=== PATIENT | male | born 1980 | race Two or more races ===

== ENCOUNTER 2016-09-27 12:02 | Inpatient (IN) | payer OTHER ==
[2016-09-27 14:06] VITALS: BMI 28.8
--- NOTE | 2016-09-27 16:40 | HP ---
[id number] [id number] Restless Observation: 1= Difficult to Sit Still Pupil Size: 0= Normal to Room Light Bone or Joint Aches: 2= Severe Diffuse Aches Runny Nose/ Eye Tearin= Runny Nose/Eyes GI Upset > 30mins: 1= Stomach Cramp Tremor Observation: 2= Slight Tremor Visible Yawning Observation: 1= 1-2x During Session Anxiety or Irritability: 2=Irritable/Anxious Goose Flesh Skin: 0=Smooth Skin COWS Score: 13 Admission [facility] - HPI Chief Complaint: withdrawal sx Allergies/Adverse Reactions: Allergies Allergy/AdvReac Type Severity Reaction Status Date / Time No Known Allergies Allergy Verified 09/27/16 15:44 History of Present Illness: 36 years old male with long history of opioid nicotine dependence has hiv and depression is admitted to detox Exam Limitations: No Limitations - Ebola screening Have you traveled outside of the country in the last 21 days: No Have you had contact with anyone from an Ebola affected area: No Have you been sick,other than usual withdrawal symptoms: No Do you have a fever: No - Review of Systems Constitutional: Chills, Changes in sleep, Weight Stable EENT: reports: Other (eye glasses) Respiratory: reports: No Symptoms reported Cardiac: reports: No Symptoms Reported GI: reports: Nausea, Poor Fluid Intake, Abdominal cramping : reports: No Symptoms Reported Musculoskeletal: reports: Back Pain Integumentary: reports: Change in Color (left inner elbow) Neuro: reports: Tremors Endocrine: reports: No Symptoms Reported Hematology: reports: No Symptoms Reported Psychiatric: reports: Judgement Intact, Orientated x3, Depressed Other Systems: Reviewed and Negative Patient History - Patient Medical History Hx Anemia: No Hx Asthma: No Hx Chronic Obstructive Pulmonary Disease (COPD): No Hx Cancer: No Hx Cardiac Disorders: No Hx Congestive Heart Failure: No Hx Hypertension: No Hx Hypercholesterolemia: No Hx Pacemaker: No HX Cerebrovascular Accident: No Hx Seizures: No Hx Dementia: No Hx Diabetes: No Hx Gastrointestinal Disorders: No Hx Liver Disease: No Hx Genitourinary Disorders: No Hx Sexually Transmitted Disorders: No Hx Renal Disease (ESRD): No Hx Thyroid Disease: No Hx Human Immunodeficiency Virus (HIV): Yes ( SINCE 2000) Hx Hepatitis C: No Hx Depression: Yes Hx Suicide Attempt: No Hx Bipolar Disorder: No Hx Schizophrenia: No - Patient Surgical History Past Surgical History: No Hx Neurologic Surgery: No Hx Cataract Extraction: No Hx Cardiac Surgery: No Hx Lung Surgery: No Hx Breast Surgery: No Hx Breast Biopsy: No Hx Abdominal Surgery: No Hx Appendectomy: No Hx Cholecystectomy: No Hx Genitourinary Surgery: No Hx Orthopedic Surgery: No - PPD History Previous Implant?: Yes Documented Results: Negative w/proof Implanted On Prior [facility] Admission?: Yes Date: 10/18/15 Results: 0 mm PPD to be Administered?: No - Smoking Cessation Smoking history: Current every day smoker Have you smoked in the past 12 months: Yes Aproximately how many cigarettes per day: 4 Cigars Per Day: 0 Hx Chewing Tobacco Use: No Initiated information on smoking cessation: Yes 'Breaking Loose' booklet given: 09/27/16 - Substance & Tx. History Hx Alcohol Use: No Hx Substance Use: Yes Substance Use Type: Cocaine, Opiates Hx Substance Use Treatment: Yes - Substances Abused Heroin Route: Injection Frequency: Daily Amount used: 2-3 bags Age of first use: 31 Date of Last Use: 09/26/16 Cocaine Route: Injection Frequency: 1-2 times per week Amount used: $60 Age of first use: 16 Date of Last Use: 09/26/16 Family Disease History - Family Disease History Family Disease History: Heart Disease: Father (), Mother Admission Physical Exam S - Vital Signs Vital Signs: Vital Signs - 24 hr 09/27/16 14:03 Temperature 96.1 F L Pulse Rate 93 H Respiratory 20 Rate Blood Pressure 128/72 - Physical General Appearance: Yes: Nourished, Appropriately Dressed, Mild Distress, Tremorous, Irritable, Sweating, Anxious HEENTM: Yes: Hearing grossly Normal, Normal ENT Inspection, Normocephalic, Normal Voice Respiratory: Yes: Chest Non-Tender, Lungs Clear, Normal Breath Sounds, No Respiratory Distress, No Accessory Muscle Use Neck: Yes: Supple, Trachea in good position Breast: Yes: Breasts Symetrical Cardiology: Yes: Regular Rhythm, Regular Rate, S1, S2 Abdominal: Yes: Non Tender, Soft Genitourinary: Yes: Within Normal Limits Back: Yes: Normal Inspection Musculoskeletal: Yes: full range of Motion, Gait Steady, Back pain Extremities: Yes: Normal Inspection, Normal Range of Motion, Non-Tender, Tremors , Other (left inner elbow iv opioid) Neurological: Yes: Fully Oriented, Alert, Motor Strength 5/5, Normal Response, Depressed Affect Integumentary: Yes: Warm, Track Bloom Lymphatic: Yes: Within Normal Limits - Diagnostic (1) HIV (human immunodeficiency virus infection) Current Visit: Yes Status: Chronic Comment: treated with stribid (2) Nicotine dependence Current Visit: Yes Status: Chronic Qualifiers: Nicotine product type: cigarettes Substance use status: in withdrawal Qualified Code(s): F17.213 - Nicotine dependence, cigarettes, with withdrawal (3) Depression (emotion) Current Visit: Yes Status: Suspected Qualifiers: Depression Type: dysthymia Qualified Code(s): F34.1 - Dysthymic disorder Cleared for Admission [facility] - Detox or Rehab [facility] Level of Care: Medically Managed Detox Regimen/Protocol: Methadone [facility] Breath Alcohol Content Breath Alcohol Content: 0 Urine Drug Screen - Results Drug Screen Negative: No Urine Drug Screen Results: RED-Cocaine, OPI-Opiates, PCP-Phencyclidine
[2016-09-27] MEDS ORDERED: MAGNESIUM CITRATE 300 ML BOTTLE PO PRN (16:42)
[2016-09-27] MEDS ORDERED: LOPERAMIDE HCL 2 MG CAPSULE PO PRN (16:42)
[2016-09-27] MEDS ORDERED: ACETAMINOPHEN 325 MG TABLET (FP) PO PRN (16:42)
[2016-09-27] MEDS ORDERED: MAGNESIUM HYDROX 2400MG/30ML ORAL SUSPENSION 30 ML CUP PO PRN (16:42)
[2016-09-27] MEDS ORDERED: guaiFENesin/D-METHORPHAN HB 10 ML UNIT-DOSE CUPS PO PRN (16:42)
[2016-09-27] MEDS ORDERED: P-EPHED 60MG/TRIPROLIDI 2.5MG TABLET PO PRN (16:42)
[2016-09-27] MEDS ORDERED: IBUPROFEN 400 MG TABLET (FP) PO PRN (16:42)
[2016-09-27] MEDS ORDERED: MENTHOL/PHENOL 1 EACH UD MM PRN (16:42)
[2016-09-27] MEDS ORDERED: METHADONE HCL 10 MG TABLET (FOR DETOX USE ONLY) PO ONE ×2 (17:15→23:00)
[2016-09-27] MEDS ORDERED: METHADONE HCL 10 MG TABLET (FOR DETOX USE ONLY) ONE (20:01)
[2016-09-27] MEDS: diazePAM 5 MG TABLET PO PRN (20:02)
[2016-09-27] MEDS: THIAMINE HCL 100 MG TABLET (FP) PO SCH (22:36)
[2016-09-27] MEDS: diphenhydrAMINE HCL 50 MG CAPSULE PO PRN (22:37)
[2016-09-28] MEDS: diphenhydrAMINE HCL 50 MG CAPSULE PO PRN (01:08)
[2016-09-28] MEDS: diazePAM 5 MG TABLET PO PRN ×4 (01:08→19:09)
[2016-09-28] MEDS ORDERED: METHADONE HCL 10 MG TABLET (FOR DETOX USE ONLY) PO ONE (10:00)
--- NOTE | 2016-09-28 10:21 | CONSULT ---
[facility] Psychiatric Consult - Data Date of interview: 09/28/16 Admission source: [facility] Identifying data: This is 36 years old male with unclerar past psychiatric hostpry of hospitalizations, reportsd history of Bipolar Disorder, reports no medicwations taking prior to admission, intoxicated with: Cocaine, Heroin, PCP , Nicotine Substance Abuse History: - Smoking Cessation. Smoking history: Current every day smoker. Have you smoked in the past 12 months: Yes. Aproximately how many cigarettes per day: 4. Cigars Per Day: 0. Hx Chewing Tobacco Use: No. Initiated information on smoking cessation: Yes. 'Breaking Loose' booklet given : 09/27/16. - Substance & Tx. History. Hx Alcohol Use: No. Hx Substance Use: Yes. Substance Use Type: Cocaine, Opiates. Hx Substance Use Treatment: Yes. - Substances Abused. Heroin. Route: Injection. Frequency: Daily. Amount used: 2-3 bags. Age of first use: 31. Date of Last Use: 09/26/16. Cocaine. Route: Injection. Frequency: 1-2 times per week. Amount used: $60. Age of first use: 16. Date of Last Use: 09/26/16 Medical History: HIV, MMTP Psychiatric History: Patioent reports history of Bipolar disorder, reports nom medications prior to admission with unclear past psychiatric hospitalization history Physical/Sexual Abuse/Trauma History: Denies Additional Comment: Obsrvartion. Detox Unit Care Protocol Mental Status Exam - Mental Status Exam Alert and Oriented to: Person Cognitive Function: Fair Patient Appearance: Unkempt Mood: Sad Affect: Flat Patient Behavior: Sedated Speech Pattern: Delayed Voice Loudness: Mildly Soft/Quiet Thought Process: Circumstantial Thought Disorder: Being Controlled Hallucinations: Denies Suicidal Ideation: Denies Homicidal Ideation: Denies Insight/Judgement: Fair Sleep: Difficulty falling asleep Appetite: Weight loss Muscle strength/Tone: Normal Gait/Station: Shuffling Additional Comments: Obsrvartion. Detox Unit Care Protocol Psychiatric Findings - Problem List ([place] 1, 2,3) (1) Nicotine dependence Current Visit: Yes Status: Chronic Qualifiers: Nicotine product type: cigarettes Substance use status: in withdrawal Qualified Code(s): F17.213 - Nicotine dependence, cigarettes, with withdrawal (2) Depression (emotion) Current Visit: Yes Status: Suspected Qualifiers: Depression Type: dysthymia Qualified Code(s): F34.1 - Dysthymic disorder (3) Opioid dependence Current Visit: No Status: Acute (4) Opioid dependence with withdrawal Current Visit: No Status: Acute (5) Sedative hypnotic or anxiolytic dependence Current Visit: No Status: Acute (6) Substance induced mood disorder Current Visit: No Status: Acute (7) Alcohol dependence Current Visit: No Status: Chronic Qualifiers: Substance use status: uncomplicated Qualified Code(s): F10.20 - Alcohol dependence, uncomplicated (8) Cocaine dependence Current Visit: No Status: Chronic Qualifiers: Substance use status: uncomplicated Qualified Code(s): F14.20 - Cocaine dependence, uncomplicated (9) Heroin dependence Current Visit: No Status: Chronic (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 Detox Unit Care Protocol
[2016-09-28] MEDS: NICOTINE 14 MG/24 HOURS TOPICAL PATCH TD SCH (10:26)
[2016-09-28] MEDS: PRENATAL VITAMINS W/ FOLIC ACID TABLET (FP) PO SCH (10:26)
[2016-09-28] MEDS: NICOTINE POLACRILEX 2 MG GUM BC PRN ×2 (10:29→23:24)
[2016-09-28 10:44] LABS: MCH 30.3 pg (25.7-33.7); MEAN CELL VOLUME 91.9 fl (80-96); MEAN PLT VOLUME 10.5 fl (7.5-11.1); PLATELET COUNT 249 K/MM3 (134-434); RDW 13.6 % (11.9-15.9); WHITE BLOOD COUNT 4.1 K/mm3 (4.0-10.0)
[2016-09-28 10:46] LABS: ALBUMIN 4.3 g/dl (3.4-5.0); ALK PHOS 67 U/L (45-117); ANION GAP 8 (8-16); BILIRUBIN,TOTAL 0.7 mg/dL (0.2-1.0); CALCIUM 9.4 mg/dL (8.5-10.1); CO2 29 mmol/L (21-32); COCKROFT - GAULT 113.16; CREATININE 1.1 mg/dL (0.7-1.3); GLUCOSE,RANDOM 105 mg/dL (74-106); SGOT/AST 14 U/L (15-37); SGPT/ALT 25 U/L (12-78); TOT PROT 7.3 g/dl (6.4-8.2)
--- NOTE | 2016-09-28 11:02 | EKG ---
Test Reason : Blood Pressure : / mmHG Vent. Rate : 088 BPM Atrial Rate : 088 BPM P-R Int : 176 ms QRS Dur : 084 ms QT Int : 334 ms P-R-T Axes : 036 044 010 degrees QTc Int : 404 ms NORMAL SINUS RHYTHM NORMAL ECG NO PREVIOUS ECGS AVAILABLE Confirmed by JEAN ELIZONDO, RAFA ([id number]) on 09/28/2016 11:02:32 AM Referred By: Confirmed By:RAFA PENA MD
[2016-09-28] MEDS ORDERED: LIDOCAINE 5% TOPICAL PATCH TP ONE (11:29)
--- NOTE | 2016-09-28 13:10 | PN ---
BHS COWS - Scale Resting Pulse: 0= [place] 80 or Below Sweatin= Chills/Flushing Restless Observation: 1= Difficult to Sit Still Pupil Size: 1= Pupils >than Normal Bone or Joint Aches: 2= Severe Diffuse Aches Runny Nose/ Eye Tearin= Nasal Congestion GI Upset > 30mins: 1= Stomach Cramp Tremor Observation of Outstretched Hands: 1= Tremor [place], Not Seen Yawning Observation: 0= None Anxiety or Irritability: 2=Irritable/Anxious Goose Flesh Skin: 0=Smooth Skin COWS Score: 10 BHS Progress Note (SOAP) Subjective: sweats, irritated, lbp. Objective: 09/28/16 13:08 Vital Signs Temperature 98.1 F 09/28/16 09:40 Pulse Rate 85 09/28/16 09:40 Respiratory Rate 18 09/28/16 09:40 Blood Pressure 123/66 09/28/16 09:40 O2 Sat by Pulse Oximetry (%) Laboratory Tests 09/28/16 09/28/16 09/28/16 06:00 06:00 06:00 WBC 4.1 RBC 5.28 Hgb 16.0 Hct 48.5 MCV 91.9 MCHC 33.0 RDW 13.6 Plt Count 249 D MPV 10.5 Sodium 142 Potassium 4.7 Chloride 105 Carbon Dioxide 29 Anion Gap 8 BUN 15 Creatinine 1.1 Creat Clearance w eGFR > 60 Random Glucose 105 Calcium 9.4 Total Bilirubin 0.7 AST 14 L ALT 25 Alkaline Phosphatase 67 Total Protein 7.3 Albumin 4.3 RPR Titer Nonreactive pt aox3 in nad ambulating Assessment: 09/28/16 13:09 withdrawal sx's lbp Plan: cont detox increase fluids lidocaine patch cont with genvoya instead of stribild
[2016-09-28 16:31] LABS: URINE APPEARANCE CLEAR; URINE BILIRUBIN NEGATIVE (NEGATIVE); URINE BLOOD NEGATIVE (NEGATIVE); URINE COLOR YELLOW; URINE GLUCOSE (UA) NEGATIVE (NEGATIVE); URINE KETONE NEGATIVE (NEGATIVE); URINE LEUK ESTERASE NEGATIVE (NEGATIVE); URINE NITRITE NEGATIVE (NEGATIVE); URINE PROTEIN NEGATIVE (NEGATIVE); URINE UROBILINOGEN NEGATIVE E.U./dl (0.2-1.0)
--- NOTE | 2016-09-28 17:56 | PN ---
Marce Progress Note Note: Psychiatry Attending's process validation engineer note : Approached by patient. Complaint : insomnia. Request : resume seroquel at bedtime. Chart reviewed.Dr Zhao's note is appreciated. Mr Perez is already known to me.See previous records. Well established tolerability/favorable response to seroquel. Made aware of side effects/benefits.Verbal consent : given. Intervention : Seroquel 100 mg po hs .Ordered.Patient is in agreement with plan.
[2016-09-28] MEDS ORDERED: QUEtiapine FUMARATE 100 MG TABLET (FP) PO SCH (22:00)
[2016-09-28] MEDS: THIAMINE HCL 100 MG TABLET (FP) PO SCH (22:43)
[2016-09-28] MEDS: MAG HYDROX/AL HYDROX/SIMETH 30 ML UNIT-DOSE CUP PO PRN (23:46)
[2016-09-29] MEDS: diazePAM 5 MG TABLET PO PRN ×3 (06:06→18:10)
[2016-09-29] MEDS: MAG HYDROX/AL HYDROX/SIMETH 30 ML UNIT-DOSE CUP PO PRN (06:07)
[2016-09-29] MEDS: NICOTINE POLACRILEX 2 MG GUM BC PRN ×2 (09:19→15:35)
[2016-09-29] MEDS ORDERED: METHADONE HCL 5 MG TABLET (FOR DETOX USE ONLY) PO ONE (10:00)
[2016-09-29] MEDS: NICOTINE 14 MG/24 HOURS TOPICAL PATCH TD SCH (10:50)
[2016-09-29] MEDS: PRENATAL VITAMINS W/ FOLIC ACID TABLET (FP) PO SCH (10:50)
[2016-09-29] MEDS: LIDOCAINE 5% TOPICAL PATCH TP SCH (10:51)
--- NOTE | 2016-09-29 11:08 | PN ---
BHS COWS - Scale Resting Pulse: 1= [place] 81-100 Sweatin=Flushed/Facial Moisture Restless Observation: 1= Difficult to Sit Still Pupil Size: 0= Normal to Room Light Bone or Joint Aches: 0= None Runny Nose/ Eye Tearin= Nasal Congestion GI Upset > 30mins: 0= None Tremor Observation of Outstretched Hands: 1= Tremor [place], Not Seen Yawning Observation: 2= >3x During Session Anxiety or Irritability: 1=Feels Anxious/Irritable Goose Flesh Skin: 0=Smooth Skin COWS Score: 9 BHS Progress Note (SOAP) Subjective: sleepy the seroquel is too much sweats agitation Objective: 09/29/16 11:07 Vital Signs Temperature 96.4 F L 09/29/16 09:27 Pulse Rate 99 H 09/29/16 09:27 Respiratory Rate 20 09/29/16 09:27 Blood Pressure 131/78 09/29/16 09:27 O2 Sat by Pulse Oximetry (%) Laboratory Tests 09/27/16 09/28/16 09/28/16 06:00 06:00 06:00 WBC 4.1 RBC 5.28 Hgb 16.0 Hct 48.5 MCV 91.9 MCHC 33.0 RDW 13.6 Plt Count 249 D MPV 10.5 Sodium 142 Potassium 4.7 Chloride 105 Carbon Dioxide 29 Anion Gap 8 BUN 15 Creatinine 1.1 Creat Clearance w eGFR > 60 Random Glucose 105 Calcium 9.4 Total Bilirubin 0.7 AST 14 L ALT 25 Alkaline Phosphatase 67 Total Protein 7.3 Albumin 4.3 Urine Color Urine Appearance Urine pH Ur Specific [place] Urine Protein Urine Glucose (UA) Urine Ketones Urine Blood Urine Nitrite Urine Bilirubin Urine Urobilinogen Ur Leukocyte Esterase RPR Titer Hepatitis C Antibody <0.1 09/28/16 09/28/16 06:00 15:57 WBC RBC Hgb Hct MCV MCHC RDW Plt Count MPV Sodium Potassium Chloride Carbon Dioxide Anion Gap BUN Creatinine Creat Clearance w eGFR Random Glucose Calcium Total Bilirubin AST ALT Alkaline Phosphatase Total Protein Albumin Urine Color Yellow Urine Appearance Clear Urine pH 6.0 Ur Specific [place] 1.020 Urine Protein Negative Urine Glucose (UA) Negative Urine Ketones Negative Urine Blood Negative Urine Nitrite Negative Urine Bilirubin Negative Urine Urobilinogen Negative Ur Leukocyte Esterase Negative RPR Titer Nonreactive Hepatitis C Antibody awake/alert ambulating no acute distress Assessment: 09/29/16 11:07 withdrawal sx Plan: continue detox increase fluids encouraged to speak to psych for medication adjustment.
[2016-09-29] MEDS: QUEtiapine FUMARATE 50 MG TABLET PO SCH (22:42)
[2016-09-29] MEDS: THIAMINE HCL 100 MG TABLET (FP) PO SCH (22:42)
--- NOTE | 2016-09-30 09:42 | PN ---
BHS Progress Note (SOAP) Subjective: ALERT,IRRITABLE,ANXIOUS,INTERRUPTED SLEEP,LOOSE BOWL MOVEMENT Objective: 09/30/16 09:41 Vital Signs Temperature 96.1 F L 09/30/16 06:30 Pulse Rate 101 H 09/30/16 06:30 Respiratory Rate 20 09/30/16 06:30 Blood Pressure 136/61 09/30/16 06:30 O2 Sat by Pulse Oximetry (%) Assessment: 09/30/16 09:42 WITHDRAWAL SYMPTOM Plan: CONTINUE DETOX
[2016-09-30] MEDS ORDERED: METHADONE HCL 5 MG TABLET (FOR DETOX USE ONLY) PO ONE (10:00)
[2016-09-30] MEDS: PRENATAL VITAMINS W/ FOLIC ACID TABLET (FP) PO SCH (10:39)
[2016-09-30] MEDS: LIDOCAINE 5% TOPICAL PATCH TP SCH (10:39)
[2016-09-30] MEDS: NICOTINE 14 MG/24 HOURS TOPICAL PATCH TD SCH (10:40)
[2016-09-30] MEDS: diazePAM 5 MG TABLET PO PRN ×2 (10:41→14:50)
[2016-09-30] MEDS: MAG HYDROX/AL HYDROX/SIMETH 30 ML UNIT-DOSE CUP PO PRN (10:43)
[2016-09-30] MEDS: NICOTINE POLACRILEX 2 MG GUM BC PRN (12:40)
--- NOTE | 2016-09-30 16:33 | PN ---
S Progress Note Note: pt states he scratched his upper arm with the metal piece/apparatus that was sticking out of the closet door. nursing was made aware. Skin has a scratch only no bleeding noted no s/s of infection to site noted. bacitracin ointment ordered.
[2016-09-30] MEDS ORDERED: BACITRACIN 0.9 GM PACKET TP SCH (17:00)
[2016-09-30] MEDS: QUEtiapine FUMARATE 50 MG TABLET PO SCH (22:40)
[2016-09-30] MEDS: THIAMINE HCL 100 MG TABLET (FP) PO SCH (22:40)
[2016-10-01 06:36] VITALS: TEMP 97.7
[2016-10-01] MEDS ORDERED: METHADONE HCL 10 MG TABLET (FOR DETOX USE ONLY) PO ONE (10:00)
[2016-10-01 10:34] VITALS: BP 108/65; PULSE 101
--- NOTE | 2016-10-01 12:10 | PN ---
S Progress Note (SOAP) Subjective: Irritability, interrupted sleep, muscle aches Objective: 10/01/16 12:07 Vital Signs - 8 hr 10/01/16 10/01/16 06:00 10:34 Temperature 97.7 F 97.7 F Pulse Rate 91 H 101 H Respiratory 20 18 Rate Blood Pressure 100/52 108/65 Laboratory Last Values WBC 4.1 K/mm3 (4.0-10.0) 09/28/16 06:00 RBC 5.28 M/mm3 (4.00-5.60) 09/28/16 06:00 Hgb 16.0 GM/dL (11.7-16.9) 09/28/16 06:00 Hct 48.5 % (35.4-49) 09/28/16 06:00 MCV 91.9 fl (80-96) 09/28/16 06:00 MCHC 33.0 g/dl (32.0-35.9) 09/28/16 06:00 RDW 13.6 % (11.9-15.9) 09/28/16 06:00 Plt Count 249 K/MM3 (134-434) D 09/28/16 06:00 MPV 10.5 fl (7.5-11.1) 09/28/16 06:00 Sodium 142 mmol/L (136-145) 09/28/16 06:00 Potassium 4.7 mmol/L (3.5-5.1) 09/28/16 06:00 Chloride 105 mmol/L (98-107) 09/28/16 06:00 Carbon Dioxide 29 mmol/L (21-32) 09/28/16 06:00 Anion Gap 8 (8-16) 09/28/16 06:00 BUN 15 mg/dL (7-18) 09/28/16 06:00 Creatinine 1.1 mg/dL (0.7-1.3) 09/28/16 06:00 Creat Clearance w eGFR > 60 (>60) 09/28/16 06:00 Random Glucose 105 mg/dL (74-106) 09/28/16 06:00 Calcium 9.4 mg/dL (8.5-10.1) 09/28/16 06:00 Total Bilirubin 0.7 mg/dL (0.2-1.0) 09/28/16 06:00 AST 14 U/L (15-37) L 09/28/16 06:00 ALT 25 U/L (12-78) 09/28/16 06:00 Alkaline Phosphatase 67 U/L (45-117) 09/28/16 06:00 Total Protein 7.3 g/dl (6.4-8.2) 09/28/16 06:00 Albumin 4.3 g/dl (3.4-5.0) 09/28/16 06:00 Urine Color Yellow 09/28/16 15:57 Urine Appearance Clear 09/28/16 15:57 Urine pH 6.0 (5.0-8.0) 09/28/16 15:57 Ur Specific [place] 1.020 (1.001-1.035) 09/28/16 15:57 Urine Protein Negative (NEGATIVE) 09/28/16 15:57 Urine Glucose (UA) Negative (NEGATIVE) 09/28/16 15:57 Urine Ketones Negative (NEGATIVE) 09/28/16 15:57 Urine Blood Negative (NEGATIVE) 09/28/16 15:57 Urine Nitrite Negative (NEGATIVE) 09/28/16 15:57 Urine Bilirubin Negative (NEGATIVE) 09/28/16 15:57 Urine Urobilinogen Negative E.U./dl (0.2-1.0) 09/28/16 15:57 Ur Leukocyte Esterase Negative (NEGATIVE) 09/28/16 15:57 RPR Titer Nonreactive (NONREACTIVE) 09/28/16 06:00 Hepatitis C Antibody <0.1 s/co ratio (0.0-0.9) 09/27/16 06:00 labs noted Assessment: 10/01/16 12:09 withdrawal sx Plan: continue detox
--- NOTE | 2016-10-01 17:03 | DS ---
[facility] Detox Discharge Summary Admission Date: 09/27/16 Discharge Date: 10/01/16 - History Present History: Alcohol Dependence, Opioid Dependence Pertinent Past History: HIV + - Physical Exam Results Vital Signs: Vital Signs Temperature 97.7 F 10/01/16 10:34 Pulse Rate 101 H 10/01/16 10:34 Respiratory Rate 18 10/01/16 10:34 Blood Pressure 108/65 10/01/16 10:34 O2 Sat by Pulse Oximetry (%) Pertinent Admission Physical Exam Findings: withdrawal sx Laboratory Last Values WBC 4.1 K/mm3 (4.0-10.0) 09/28/16 06:00 RBC 5.28 M/mm3 (4.00-5.60) 09/28/16 06:00 Hgb 16.0 GM/dL (11.7-16.9) 09/28/16 06:00 Hct 48.5 % (35.4-49) 09/28/16 06:00 MCV 91.9 fl (80-96) 09/28/16 06:00 MCHC 33.0 g/dl (32.0-35.9) 09/28/16 06:00 RDW 13.6 % (11.9-15.9) 09/28/16 06:00 Plt Count 249 K/MM3 (134-434) D 09/28/16 06:00 MPV 10.5 fl (7.5-11.1) 09/28/16 06:00 Sodium 142 mmol/L (136-145) 09/28/16 06:00 Potassium 4.7 mmol/L (3.5-5.1) 09/28/16 06:00 Chloride 105 mmol/L (98-107) 09/28/16 06:00 Carbon Dioxide 29 mmol/L (21-32) 09/28/16 06:00 Anion Gap 8 (8-16) 09/28/16 06:00 BUN 15 mg/dL (7-18) 09/28/16 06:00 Creatinine 1.1 mg/dL (0.7-1.3) 09/28/16 06:00 Creat Clearance w eGFR > 60 (>60) 09/28/16 06:00 Random Glucose 105 mg/dL (74-106) 09/28/16 06:00 Calcium 9.4 mg/dL (8.5-10.1) 09/28/16 06:00 Total Bilirubin 0.7 mg/dL (0.2-1.0) 09/28/16 06:00 AST 14 U/L (15-37) L 09/28/16 06:00 ALT 25 U/L (12-78) 09/28/16 06:00 Alkaline Phosphatase 67 U/L (45-117) 09/28/16 06:00 Total Protein 7.3 g/dl (6.4-8.2) 09/28/16 06:00 Albumin 4.3 g/dl (3.4-5.0) 09/28/16 06:00 Urine Color Yellow 09/28/16 15:57 Urine Appearance Clear 09/28/16 15:57 Urine pH 6.0 (5.0-8.0) 09/28/16 15:57 Ur Specific [place] 1.020 (1.001-1.035) 09/28/16 15:57 Urine Protein Negative (NEGATIVE) 09/28/16 15:57 Urine Glucose (UA) Negative (NEGATIVE) 09/28/16 15:57 Urine Ketones Negative (NEGATIVE) 09/28/16 15:57 Urine Blood Negative (NEGATIVE) 09/28/16 15:57 Urine Nitrite Negative (NEGATIVE) 09/28/16 15:57 Urine Bilirubin Negative (NEGATIVE) 09/28/16 15:57 Urine Urobilinogen Negative E.U./dl (0.2-1.0) 09/28/16 15:57 Ur Leukocyte Esterase Negative (NEGATIVE) 09/28/16 15:57 RPR Titer Nonreactive (NONREACTIVE) 09/28/16 06:00 Hepatitis C Antibody <0.1 s/co ratio (0.0-0.9) 09/27/16 06:00 - Medication Discharge Medications: Ambulatory Orders Elviteg/Sofi/Emtric/Tenofo Ala [Genvoya Tablet] 1 each PO DAILY 09/27/16 - Diagnosis (1) Sedative hypnotic or anxiolytic dependence Status: Acute (2) Substance induced mood disorder Status: Acute (3) Alcohol dependence Status: Acute Qualifiers: Substance use status: uncomplicated Qualified Code(s): F10.20 - Alcohol dependence, uncomplicated (4) Cocaine dependence Status: Acute Qualifiers: Substance use status: uncomplicated Qualified Code(s): F14.20 - Cocaine dependence, uncomplicated (5) HIV (human immunodeficiency virus infection) Status: Chronic - AMA Did Patient Leave Against Medical Advice: Yes
[2016-10-02] MEDS ORDERED: METHADONE HCL 5 MG TABLET (FOR DETOX USE ONLY) PO ONE (06:00)
== END 2016-10-01 09:20 | disposition left against medical advice (07) | DRG 770 ==
LOC: YASAS 12:02 → Y6N 17:02
PROVIDERS: ADMIT Internal Medicine Addiction Medicine; ATTEND Internal Medicine Addiction Medicine
PROC: HZ2ZZZZ Detoxification Services for Substance Abuse Treatment (ICD-10-PCS; principal; 2016-10-01)
DX: F11.23 Opioid dependence with withdrawal (principal); F13.230 Sedative, hypnotic or anxiolytic dependence with withdrawal, uncomplicated; F14.20 Cocaine dependence, uncomplicated; F17.210 Nicotine dependence, cigarettes, uncomplicated; F16.10 Hallucinogen abuse, uncomplicated; F19.24 Other psychoactive substance dependence with psychoactive substance-induced mood disorder; F34.1 Dysthymic disorder; F31.9 Bipolar disorder, unspecified; Z21 Asymptomatic human immunodeficiency virus [HIV] infection status
CPT/HCPCS: 36415; 80053; 81003; 85027; 86593; 93005; 93010

== ENCOUNTER 2023-05-23 22:34 | Inpatient (IN) | payer OTHER ==
[2023-05-23 23:25] VITALS: BMI 23.4
[2023-05-23] MEDS ORDERED: MAG HYDROX/AL HYDROX/SIMETH 30 ML UNIT-DOSE CUP PO PRN (23:52)
[2023-05-23] MEDS ORDERED: BENZONATATE 200 MG CAPSULE PO PRN (23:52)
[2023-05-23] MEDS ORDERED: IBUPROFEN 400 MG TABLET (FP) PO PRN (23:52)
[2023-05-23] MEDS ORDERED: guaiFENesin 600 MG TABLET.ER (FP) PO PRN (23:52)
[2023-05-23] MEDS ORDERED: ONDANSETRON *ODT* 4 MG TABLET SL PRN (23:52)
[2023-05-23] MEDS ORDERED: NALOXONE HCL (KLOXXADO) 8 MG SPRAY NS PRN (23:52)
[2023-05-23] MEDS ORDERED: BISMUTH SUBSALICYLATE 524 MG/30 ML PO PRN (23:52)
[2023-05-23] MEDS ORDERED: LOPERAMIDE HCL 2 MG CAPSULE PO PRN (23:52)
[2023-05-23] MEDS ORDERED: MAGNESIUM HYDROX 2400MG/30ML ORAL SUSPENSION 30 ML CUP PO PRN (23:52)
[2023-05-23] MEDS ORDERED: NICOTINE POLACRILEX 2 MG GUM BUC PRN (23:52)
[2023-05-23] MEDS ORDERED: ACETAMINOPHEN 325 MG TABLET (FP) PO PRN (23:52)
[2023-05-23] MEDS ORDERED: BENZOCAINE/MENTHOL (CHLORASEPTIC ) LOZENGE MM PRN (23:52)
[2023-05-23] MEDS ORDERED: NALOXONE HCL 0.4 MG/ML VIAL IM PRN (23:52)
[2023-05-23] MEDS ORDERED: IBUPROFEN 600 MG TABLET (FP) PO PRN (23:52)
[2023-05-23] MEDS ORDERED: DICYCLOMINE HCL 10 MG CAPSULE PO PRN (23:52)
[2023-05-23] MEDS ORDERED: POLYETHYLENE GLYCOL (HEALTHYLAX) 3350 17 GM PACKET PO PRN (23:52)
[2023-05-23] MEDS ORDERED: methaDONE HCL 10 MG TABLET (FOR DETOX USE ONLY) PO ONE (23:59)
[2023-05-24] MEDS ORDERED: methaDONE HCL 10 MG TABLET (FOR DETOX USE ONLY) ONE (00:02)
[2023-05-24] MEDS: hydrOXYzine PAMOATE 25 MG CAPSULE (FP) PO PRN (05:37)
[2023-05-24] MEDS: BICTEGRAV/EMTRICIT/TENOFOV (BIKTARVY) 50-200-25 MG TABLET PO SCH (10:00)
[2023-05-24] MEDS: NICOTINE 14 MG/24 HOURS TOPICAL PATCH TD SCH (10:02)
[2023-05-24] MEDS: PRENATAL VITAMINS W/ FOLIC ACID TABLET (FP) PO SCH (10:03)
[2023-05-24 10:39] LABS: CHLORIDE 108 mmol/L (98-107); POTASSIUM 3.8 mmol/L (3.5-5.1); SODIUM 141 mmol/L (136-145)
[2023-05-24 10:50] LABS: HEMATOCRIT 36.1 % (35.4-49); HEMOGLOBIN 12.1 GM/dL (11.7-16.9); MCH 28.2 pg (25.7-33.7); MCHC 33.4 g/dl (32.0-35.9); MEAN CELL VOLUME 84.3 fl (80-96); PLATELET COUNT 306 10^3/uL (134-434); RBC 4.28 M/mm3 (4.00-5.60); RDW 13.3 % (11.9-15.9); WHITE BLOOD COUNT 3.2 K/mm3 (4.0-10.0)
[2023-05-24 11:10] LABS: CALCIUM 8.7 mg/dL (8.5-10.1)
[2023-05-24 11:11] LABS: ANION GAP 5 mmol/L (4-13); BLOOD UREA NITROGEN 8.4 mg/dL (7-18); CO2 28 mmol/L (21-32)
[2023-05-24 11:12] LABS: GLUCOSE,RANDOM 121 mg/dL (74-106)
[2023-05-24 11:14] LABS: BILIRUBIN,TOTAL 0.1 mg/dL (0.2-1); CREATININE 0.7 mg/dL (0.55-1.3); SGOT/AST 17 U/L (15-37); SGPT/ALT 14 U/L (13-61); TOT PROT 6.6 g/dl (6.4-8.2)
[2023-05-24 11:16] LABS: ALK PHOS 62 U/L (45-117)
[2023-05-24] MEDS: THIAMINE HCL 100 MG TABLET (FP) PO SCH (22:02)
[2023-05-24] MEDS: MELATONIN 5 MG TABLETS PO SCH (22:02)
[2023-05-25] MEDS: BICTEGRAV/EMTRICIT/TENOFOV (BIKTARVY) 50-200-25 MG TABLET PO SCH (07:54)
[2023-05-25] MEDS: cloNIDine HCL 0.1 MG TABLET PO PRN ×2 (09:25→22:55)
[2023-05-25] MEDS: METHOCARBAMOL 500 MG TABLET PO PRN ×3 (09:25→23:24)
[2023-05-25] MEDS: NICOTINE 14 MG/24 HOURS TOPICAL PATCH TD SCH (09:26)
[2023-05-25] MEDS: PRENATAL VITAMINS W/ FOLIC ACID TABLET (FP) PO SCH (09:26)
[2023-05-25] MEDS ORDERED: methaDONE HCL 10 MG TABLET (FOR DETOX USE ONLY) PO ONE (10:00)
[2023-05-25] MEDS ORDERED: diazePAM 5 MG TABLET PO PRN (12:44)
[2023-05-25] MEDS: hydrOXYzine PAMOATE 25 MG CAPSULE (FP) PO PRN (17:10)
[2023-05-25] MEDS: MELATONIN 5 MG TABLETS PO SCH (22:55)
[2023-05-25] MEDS: THIAMINE HCL 100 MG TABLET (FP) PO SCH (22:56)
[2023-05-26] MEDS: BICTEGRAV/EMTRICIT/TENOFOV (BIKTARVY) 50-200-25 MG TABLET PO SCH (07:24)
[2023-05-26] MEDS: PRENATAL VITAMINS W/ FOLIC ACID TABLET (FP) PO SCH (10:14)
[2023-05-26] MEDS: hydrOXYzine PAMOATE 25 MG CAPSULE (FP) PO PRN ×2 (10:15→17:05)
[2023-05-26] MEDS: METHOCARBAMOL 500 MG TABLET PO PRN ×3 (10:15→23:21)
[2023-05-26] MEDS: NICOTINE 14 MG/24 HOURS TOPICAL PATCH TD SCH (10:16)
[2023-05-26] MEDS: MELATONIN 5 MG TABLETS PO SCH (22:20)
[2023-05-26] MEDS: THIAMINE HCL 100 MG TABLET (FP) PO SCH (22:20)
[2023-05-27] MEDS: METHOCARBAMOL 500 MG TABLET PO PRN (06:20)
[2023-05-27] MEDS: hydrOXYzine PAMOATE 25 MG CAPSULE (FP) PO PRN (06:20)
[2023-05-27] MEDS: BICTEGRAV/EMTRICIT/TENOFOV (BIKTARVY) 50-200-25 MG TABLET PO SCH (07:05)
[2023-05-27 09:27] VITALS: BP 120/74; PULSE 98; RESP 18; TEMP 97.3
[2023-05-27] MEDS ORDERED: methaDONE HCL 10 MG TABLET (FOR DETOX USE ONLY) PO ONE (10:00)
[2023-05-27] MEDS: PRENATAL VITAMINS W/ FOLIC ACID TABLET (FP) PO SCH (10:02)
[2023-05-27] MEDS: NICOTINE 14 MG/24 HOURS TOPICAL PATCH TD SCH (10:02)
== END 2023-05-27 11:05 | disposition left against medical advice (07) | DRG 770 ==
LOC: YASAS 22:34 → Y6N 05-24 02:35
PROVIDERS: ADMIT Allergy & Immunology; ATTEND Surgery
PROC: HZ2ZZZZ Detoxification Services for Substance Abuse Treatment (ICD-10-PCS; principal; 2023-05-24)
DX: F11.23 Opioid dependence with withdrawal (principal); F15.10 Other stimulant abuse, uncomplicated; F19.24 Other psychoactive substance dependence with psychoactive substance-induced mood disorder; U07.1 COVID-19; Z21 Asymptomatic human immunodeficiency virus [HIV] infection status; Z87.891 Personal history of nicotine dependence; Z86.19 Personal history of other infectious and parasitic diseases
CPT/HCPCS: 36415; 80053; 80307; 85027; 86593; 86780; 87635; 87811; 93005; 93010